=== PATIENT | female | born 1970 | race Caucasian/White ===

== ENCOUNTER → 2023-06-13 06:25 | Day surgery (SDC) | payer OTHER, SELFPAY | LOC: GI 06:25 | PROVIDERS: ATTENDING PHYSICIAN Specialist | DX: K51.919 Ulcerative colitis, unspecified with unspecified complications (principal); R19.4 Change in bowel habit; Z98.0 Intestinal bypass and anastomosis status; K51.40 Inflammatory polyps of colon without complications | CPT/HCPCS: 45331; 88305 ==

== ENCOUNTER 2023-09-02 12:57 | Emergency (ER) | payer OTHER, SELFPAY ==
[2023-09-02 13:04] VITALS: BP 151/88
--- NOTE | 2023-09-02 13:51 | ED.GENMED ---
History of Present Illness
<Jessie Holloway PA-C - Last Filed: 09/02/23 19:49>
General
Chief Complaint: Back Pain
Source: patient
Exam Limitations: none
Time Seen by Provider: 09/02/23 13:21
Nursing documentation reviewed up to this point in time: agreed with
Travel History
Have you had any contact with someone who has COVID-19?: No
Do you have any symptoms of coronavirus? Fever > 100 degrees, chills, cough, shortness of breath, sore throat, loss of taste or smell, muscle aches, or headache?: No
History of Present Illness
History of Present Illness:
Patient is a 53-year-old female presenting to the emergency department for evaluation of lower back pain. Patient reports that she was gardening on evening lifting heavy pots and noticed the pain shortly after that. She reports a sharp
pain in her left lower back with some radiation down into her left mid thigh. Pain is much worse with movement, walking, and sitting down. Patient does not have any pain at rest. Patient denies any fever, chills, bowel/bladder incontinence, lower
extremity weakness, numbness/tingling.
Patient does have a history of herniated disks and similar low back pain. She has been treated in the past with muscle relaxant which did help.
Patient denies any history of IV drug use.
Past History
<Jessie Holloway PA-C - Last Filed: 09/02/23 19:49>
Past History
ED Past Medical History: Other (Ulcerative colitis)
ED Past Surgical History: Other (Colectomy)
Social History
Tobacco: Non-smoker
Alcohol: None
Drug: None
Personal:
Living: with family
Review of Systems
<Jessie Holloway PA-C - Last Filed: 09/02/23 19:49>
Review of Systems
Allergies reviewed?: Yes
All Other Systems: ROS reviewed and negative except as documented in HPI and ROS
Phy Exam
<Jessie Holloway PA-C - Last Filed: 09/02/23 19:49>
Physical Exam
Physical Exam:
Vitals: Patient's vital signs are stable. Afebrile
General: Patient is well appearing, no acute distress. Nontoxic appearing
Skin: Warm and dry, no rashes or lesions
Head: Normocephalic, atraumatic
Eyes: Sclera nonicteric. EOMs intact. No nystagmus.
Throat: Protecting airway
Neck: Normal ROM, no cervical spine tenderness, no meningismus
Cardiac: Regular rate and rhythm, no murmurs.
Pulm: Normal respiratory effort, no wheezes, rales, rhonchi heard on exam.
Abdomen: No abdominal tenderness.
Back: Point tenderness at left SI joint. Negative straight leg raise bilaterally. No erythema, rashes, or bruising noted on back. No midline spinal tenderness. No evidence of rashes or bruising. No CVA tenderness.
Extremities: No evidence of cyanosis or edema. Strength 5/5 in upper and lower extremities. Good distal pulses.
Neuro: AAOx3. CN II-XII intact. No focal neurologic deficits. Sensation fully intact.
Psychiatric: Normal affect.
Course
<Jessie Holloway PA-C - Last Filed: 09/02/23 19:49>
Orders/Labs/Results
Orders:
Orders
09/02/23 14:00
Cyclobenzaprine HCl [Flexeril] 5 mg PO NOW STA
Lidocaine [Lidocaine 4% Patch] 1 patch TOPICAL NOW STA
09/02/23 14:48
Prednisone [Deltasone] 50 mg PO NOW STA
Vital Signs
Initial and Last Documented VS:
Initial Vital Signs
Temp Pulse Resp BP Pulse Ox
98.1 F 82 16 151/88 98
09/02/23 13:04 09/02/23 13:04 09/02/23 13:04 09/02/23 13:04 09/02/23 13:04
Last Documented Vital Signs
Temp Pulse Resp BP Pulse Ox
98.1 F 84 18 129/92 98
09/02/23 13:04 09/02/23 14:30 09/02/23 14:30 09/02/23 14:30 09/02/23 14:30
<Bhargav Johnson DO - Last Filed: 09/02/23 14:54>
Orders/Labs/Results
Orders:
Orders
09/02/23 14:00
Cyclobenzaprine HCl [Flexeril] 5 mg PO NOW STA
Lidocaine [Lidocaine 4% Patch] 1 patch TOPICAL NOW STA
09/02/23 14:48
Prednisone [Deltasone] 50 mg PO NOW STA
Vital Signs
Initial and Last Documented VS:
Initial Vital Signs
Temp Pulse Resp BP Pulse Ox
98.1 F 82 16 151/88 98
09/02/23 13:04 09/02/23 13:04 09/02/23 13:04 09/02/23 13:04 09/02/23 13:04
Last Documented Vital Signs
Temp Pulse Resp BP Pulse Ox
98.1 F 84 18 129/92 98
09/02/23 13:04 09/02/23 14:30 09/02/23 14:30 09/02/23 14:30 09/02/23 14:30
<Jessie Holloway PA-C - Last Filed: 09/02/23 19:49>
MDM/Problems Addressed
Differential Diagnosis Includes:
Not limited to: muscle strain, muscle spasm, zoster, disc hernation, kidney stone, doubt infectious process or malignancy,
MDM/Problems Addressed:
53-year-old female presents with persistent left lower back pain following injury 4 days ago. This occurred while lifting heavy pots in the garden. History of herniated disc. Similar symptoms in the past which were partially improved with
Flexeril. Pain much worse with movement, walking, sitting. No fever, chills, or other systemic signs of infection. No neurologic deficits. No loss of bowel/bladder control. No history of IV drug use. Patient has no red flag back symptoms.
Vitals are stable. She is afebrile. Exam as above. Patient clearly in distress due to pain with any type of movement, although appears comfortable while lying flat on stretcher. No midline spinal tenderness or evidence of rashes or bruising.
She is very point tender on her left SI joint. Likely muscular strain causing nerve compression. No indication for imaging at this time. Will give steroid, Flexeril, lidocaine patch.
Patient does appear slightly more comfortable following medication. Still having pain with movement but comfortable at rest. This will require more time to see improvement in pain. Will discharge with steroids, flexeril, few narcotic pills as
needed for severe pain. Patient aware to not take 2 medications together. She will follow-up with her primary care provider and clinical appeals specialist for further evaluation tomorrow. Return precautions discussed at length.
Chronic conditions affecting care:
N/A
Acute Exacerbation and/or Progression of Chronic Illness:
N/A
<Jessie Holloway PA-C - Last Filed: 09/02/23 19:49>
*Pulse Oximetry
Patient hypoxic: no
*EKG
Interpreted by ED Provider?: NA
*Geothermal Electrical Engineer Interpretation
Rate: Geothermal Electrical Engineer- N/A
*Critical Care Note
Total Time (30-74mins, 75-104mins- exclusive of procedures): Not Applicable
ED Attending Note
<Jessie Holloway PA-C - Last Filed: 09/02/23 19:49>
-
Portions of this chart may have been created with voice recognition software.� Occasional wrong word or��sound alike� substitutions may have occurred due to the inherent limitations of voice recognition software.
<Bhargav El Elizabeth, DO - Last Filed: 09/02/23 14:54>
ED Attending Note
Patient seen and examined by attending physician: Yes
I performed the substantive portion of visit, reviewed & personally made and approve the management plan that is documented in note by myself or AUDREY.: Yes
I performed a history and physical exam of patient and discussed management with resident, I reviewed resident's note and agree with documented findings and plan of care.: Yes
ED Attending Note:
I evaluated the patient at bedside. She currently appears comfortable while resting supine on the stretcher without any significant movement. She states Flexeril has helped her in the past. She has had diagnosis of herniated disc and has been to
a clinical appeals specialist in the past�I have recommended she calls them for follow-up. Will give short course of narcotic analgesia in addition to prescription for Flexeril and steroids.
Discharge Plan
Departure
Patient Disposition: Home (Routine Discharge)
Date of Disposition: 09/02/23
Time of Disposition: 14:48
Patient with high blood pressure during this ER visit?: Yes
Condition: Good
Covid-19: Not Applicable
Discharge Problem:
Lower back pain
Instructions: Low Back Pain (DC), Sciatica (DC), BLOOD PRESSURE
Prescriptions:
New
prednisone 50 mg tablet
50 mg PO DAILY Qty: 4 0RF
cyclobenzaprine 5 mg tablet
5 mg PO TID PRN (Reason: muscle spasm) Qty: 10 0RF
oxycodone-acetaminophen [Percocet] 5-325 mg tablet
1 tab PO Q6HPRN PRN (Reason: pain) Qty: 5 0RF
No Action
acetaminophen [Tylenol Extra Strength] 500 MG tablet
500 - 1,000 mg PO DAILYPRN PRN (Reason: PAIN)
hydrocodone-acetaminophen 1 TABLET tablet
1 tab PO Q4HPRN PRN (Reason: pain) Qty: 24 0RF
levofloxacin 500 MG tablet
500 mg PO DAILY Qty: 4 0RF
Referrals:
Jaclyn Bailey PA-C [Family Provider] - Follow up in 5-7 days
Activity Restrictions/Additional Instructions:
RETURN TO THE EMERGENCY DEPARTMENT WITH ANY HIGH FEVERS, SEVERE ABDOMINAL PAIN, NUMBNESS/TINGLING IN LOWER EXTREMITIES, LOSS OF BOWEL/BLADDER CONTROL, WEAKNESS IN LOWER EXTREMITIES, INTRACTABLE PAIN, WORSENING IN CURRENT SYMPTOMS, OR ANY OTHER
CONCERNS
-A few prescriptions have been sent to your pharmacy. Your first dose of steroid was given in the emergency department today. You should take your next dose tomorrow and continue for the next 4 days. You can take motrin as needed for discomfort. You
can apply over the counter lidocaine patches to affected area. For severe pain you can take Percocet. You can take cyclobenzaprine as needed for muscle spasm. You should make sure to separate doses of Percocet and cyclobenzaprine as they both can
cause drowsiness.
-Stay well hydrated. Warm compress as needed
-As discussed - you should follow-up with primary care in a few days for further evaluation/to ensure symptoms are improving
Interventions
Interventions:
*Risk Screen - Suicide Last Done: 09/02/23 14:17
*General Assessment Last Done: 09/02/23 14:17
*Neglect/Abuse Screening Last Done: 09/02/23 14:17
ED- Fall Risk Assessment Last Done: 09/02/23 14:18
*ED COVID-19 Vaccine History Last Done: 09/02/23 14:17
*Nursing Disposition Last Done: 09/02/23 15:32
ED-Musculoskeletal Assessment Last Done: 09/02/23 14:17
Discharge Date and Time
Discharge Date/Time: 09/02/23 15:33
Print Language: ALBANIAN
--- NOTE | 2023-09-02 13:55 | EDRN ---
Cristiane Holloway PA in to see pt.
[2023-09-02 14:18] VITALS: BMI 26.6
[2023-09-02] MEDS: FLEXERIL 5 MG PO (14:24)
[2023-09-02] MEDS: LIDOCAINE 4% PATCH 1 PATCH TOPICAL (14:25)
[2023-09-02 14:30] VITALS: BP 129/92
[2023-09-02] MEDS: DELTASONE 50 MG PO (15:03)
== END 2023-09-02 15:33 | disposition home or self-care (01) ==
LOC: EMR 12:57
PROVIDERS: EMERGENCY PHYSICIAN Emergency Medicine; FAMILY PHYSICIAN Physician Assistant Medical
DX: M54.50 Low back pain, unspecified (principal); K51.90 Ulcerative colitis, unspecified, without complications; G90.A Postural orthostatic tachycardia syndrome [POTS]; Z90.49 Acquired absence of other specified parts of digestive tract
CPT/HCPCS: 99282

== ENCOUNTER → 2024-01-09 12:18 | Outpatient (REF) | payer OTHER, SELFPAY | LOC: WDC 12:18 | PROVIDERS: ATTENDING PHYSICIAN Nurse Practitioner Family; FAMILY PHYSICIAN Physician Assistant Medical | DX: Z12.31 Encounter for screening mammogram for malignant neoplasm of breast (principal) | CPT/HCPCS: 77063; 77067 ==

== ENCOUNTER → 2024-09-18 13:47 | Outpatient (REF) | payer OTHER, SELFPAY | LOC: HWRAD 13:47 | PROVIDERS: ATTENDING PHYSICIAN Physician Assistant Medical | DX: R22.1 Localized swelling, mass and lump, neck (principal) | CPT/HCPCS: 76536 ==

== ENCOUNTER → 2025-01-05 09:46 | Outpatient (REF) | payer OTHER, SELFPAY | LOC: WDC 09:46 | PROVIDERS: ATTENDING PHYSICIAN Obstetrics & Gynecology; FAMILY PHYSICIAN Physician Assistant Medical | DX: N60.11 Diffuse cystic mastopathy of right breast (principal); N60.12 Diffuse cystic mastopathy of left breast | CPT/HCPCS: 76642; 77062; 77066 ==

== ENCOUNTER → 2025-01-19 15:01 | Outpatient (REF) | payer OTHER, SELFPAY | LOC: HWRAD 15:01 | PROVIDERS: ATTENDING PHYSICIAN Otolaryngology; FAMILY PHYSICIAN Physician Assistant Medical | DX: R59.0 Localized enlarged lymph nodes (principal) | CPT/HCPCS: 76536 ==

== ENCOUNTER → 2025-03-19 10:51 | Outpatient (REF) | payer OTHER, SELFPAY | LOC: WDC 10:51 | PROVIDERS: ATTENDING PHYSICIAN Advanced Practice Midwife; FAMILY PHYSICIAN Physician Assistant Medical | DX: Z12.39 Encounter for other screening for malignant neoplasm of breast (principal); N60.11 Diffuse cystic mastopathy of right breast; N60.12 Diffuse cystic mastopathy of left breast; Z80.3 Family history of malignant neoplasm of breast; R92.30 Dense breasts, unspecified | CPT/HCPCS: 76641 ==